=== PATIENT | male | born 1965 | race Caucasian/White ===

== ENCOUNTER 2017-04-04 20:52 | Inpatient (IN) | payer OTHER ==
[~2017-04-04] VITALS: Ht 175.3 cm; Wt 100.3 kg
[2017-04-04 21:22] LABS: BASOPHILS # (AUTO) 0.08 x10^3/uL (0-0.1); BASOPHILS % (AUTO) 1 % (0-1); EOSINOPHILS # (AUTO) 0.22 x10^3/uL (0-0.4); EOSINOPHILS % (AUTO) 3 % (1-7); LYMPHOCYTES % (AUTO) 18 % (22-44); MD NO; MEAN CORPUSCULAR VOLUME 91.2 fL (81-97); MEAN PLATELET VOLUME 7.8 fL (7.4-10.4); MONOCYTES # (AUTO) 0.83 x10^3/uL (0.2-0.8); MONOCYTES % (AUTO) 9 % (2-9); NEUTROPHILS # (AUTO) 6.16 x10^3/uL (1.8-6.8); NEUTROPHILS % (AUTO) 69 % (42-75); PLATELET COUNT 251 x10^3/uL (130-400); RED BLOOD COUNT 4.39 x10^6/uL (4.38-5.82); RED CELL DISTRIBUTION WIDTH 12.9 % (9.4-14.8)
[2017-04-04] MEDS ORDERED: NITROGLYCERIN SINGLE TAB 0.4 MG SL ONE (21:29)
[2017-04-04] MEDS: NITROGLYCERIN SINGLE TAB 0.4 MG SL PRN ×2 (21:30→21:40)
[2017-04-04] MEDS ORDERED: SODIUM CHLORIDE FLUSH 10ML SYR IVF ONE (21:30)
[2017-04-04 21:38] LABS: ALANINE AMINOTRANSFERASE 33 U/L (12-78); ALBUMIN 3.9 g/dL (3.4-5.0); ANION GAP 8 mmol/L (5-15); CALCIUM 8.5 mg/dL (8.5-10.1); CHLORIDE 106 mmol/L (98-107); CREATININE 1.53 mg/dL (0.7-1.3); TROPONIN I < 0.015 ng/mL (0.000-0.045)
[2017-04-04 21:39] LABS: ALKALINE PHOSPHATASE 57 U/L (45-117); BILIRUBIN,TOTAL 0.5 mg/dL (0.2-1.0); TOTAL PROTEIN 7.5 g/dL (6.4-8.2)
[2017-04-04] MEDS ORDERED: ONDANSETRON 2MG/ML, 2ML ONE (21:46)
[2017-04-04] MEDS ORDERED: MORPHINE SULFATE 4 MG/ML, 1ML ONE (21:46)
[2017-04-04 21:47] LABS: INTERNATIONAL NORMALIZED RATIO 1.21 (0.93-1.1); PROTHROMBIN TIME 12.4 Seconds (9.6-11.5)
[2017-04-04] MEDS ORDERED: ONDANSETRON 2MG/ML, 2ML IVPush ONE (22:00)
[2017-04-04] MEDS ORDERED: MORPHINE SULFATE 4 MG/ML, 1ML IVPush PRN (22:00)
[2017-04-04] MEDS ORDERED: LISI-170 PO (22:26)
[2017-04-04] MEDS ORDERED: SPIR25TA3 PO (22:26)
[2017-04-04] MEDS ORDERED: RIVA20TA PO (22:26)
[2017-04-04] MEDS ORDERED: FURO20TA3 PO (22:26)
[2017-04-04] MEDS ORDERED: CLOP75TA PO (22:26)
[2017-04-04] MEDS ORDERED: CARV6.2512 PO (22:26)
[2017-04-04] MEDS ORDERED: ROSU20TA PO (22:26)
[2017-04-04] MEDS ORDERED: SODIUM CHLORIDE 0.9% 1,000ML IVBOLUS ONE (23:30)
[2017-04-05] MEDS ORDERED: ZOLPIDEM 5MG TABLET PO PRN
[2017-04-05] MEDS ORDERED: morphine SULFATE 10 MG/ML, 1ML IVPush PRN
[2017-04-05] MEDS ORDERED: ONDANSETRON 2MG/ML, 2ML IVPush PRN
[2017-04-05] MEDS ORDERED: hydrALAzine 20 MG/ML, 1ML IVPush PRN
[2017-04-05 00:03] LABS: TROPONIN I < 0.015 ng/mL (0.000-0.045)
[2017-04-05 00:30] VITALS: BP 127/87
[2017-04-05] MEDS: SODIUM CHLORIDE 0.9% 1,000 ML IV SCH ×2 (00:46→07:47)
[2017-04-05 02:03] LABS: MICROSCOPIC NOT IND
[2017-04-05 02:17] LABS: CULTURE INDICATED? NO
[2017-04-05 02:45] LABS: AMPHETAMINE SCREEN, URINE Positive (Negative); BARBITURATE SCREEN, URINE Negative (Negative); BENZODIAZEPINE SCREEN, URINE Negative (Negative); CANNABINOID SCREEN, URINE Negative (Negative); COCAINE SCREEN, URINE Negative (Negative); METHADONE SCREEN, URINE Negative (Negative); OPIATE SCREEN, URINE Positive (Negative)
[2017-04-05 04:00] VITALS: BP 129/78
[2017-04-05 05:55] LABS: TROPONIN I < 0.015 ng/mL (0.000-0.045)
[2017-04-05 05:58] LABS: ANION GAP 7 mmol/L (5-15); CALCIUM 7.5 mg/dL (8.5-10.1); CHLORIDE 108 mmol/L (98-107); CHOLESTEROL, TOTAL 92 mg/dL (140-239); CREATININE 1.12 mg/dL (0.7-1.3)
[2017-04-05 06:01] LABS: CHOL/HDL RATIO 2.6; HDL CHOL % 39 % (26-37); HDL CHOLESTEROL (DIRECT) 36 mg/dL (40-60); LDL CHOLESTEROL,CALCULATED 30 mg/dL (54-169); LDL/HDL RATIO 0.8 (0.5-3.0); TRIGLYCERIDES 132 mg/dL (50-200); VLDL CHOLESTEROL 26 mg/dL (0-25)
[2017-04-05 07:43] VITALS: BP 103/68
[2017-04-05] MEDS ORDERED: CLOPIDOGREL 75 MG TABLET PO SCH (09:00)
[2017-04-05] MEDS ORDERED: RIVAROXABAN 20 MG TABLET PO SCH (09:00)
[2017-04-05] MEDS ORDERED: SPIRONOLACTONE 25 MG TABLET PO SCH (09:00)
[2017-04-05] MEDS ORDERED: CARVEDILOL 6.25 MG TABLET PO SCH (09:00)
[2017-04-05] MEDS ORDERED: LISINOPRIL 20 MG TABLET PO SCH (09:00)
[2017-04-05] MEDS ORDERED: FUROSEMIDE 20 MG TABLET PO SCH (09:00)
[2017-04-05] MEDS ORDERED: REGADENOSON 0.4 MG/5 ML SYRINGE ONE (09:13)
[2017-04-05 10:04] VITALS: BP 104/70
[2017-04-05 11:25] VITALS: BP 109/75
[2017-04-05 12:26] VITALS: BP 108/69
[2017-04-05] MEDS ORDERED: MAALOX/HYOSCYAMINE/LIDOCAINE 45 ML BTL PO ONE (17:00)
[2017-04-05] MEDS ORDERED: NITR0.6T4 SL (17:11)
[2017-04-05] MEDS ORDERED: NITR0.3T5 SL (17:11)
[2017-04-05] MEDS ORDERED: NITR0.4T SL (17:11)
[2017-04-05] MEDS ORDERED: ATORVASTATIN 40 MG TABLET PO SCH (21:00)
== END 2017-04-05 18:02 | disposition home or self-care (01) | DRG 439 ==
LOC: SUATTDRO 23:31 → ED 23:31 → EDIP 23:44 → 5SO 04-05 00:47
PROVIDERS: ADMIT Hospitalist; ATTEND Hospitalist
DX: K85.90 Acute pancreatitis without necrosis or infection, unspecified (principal); N17.9 Acute kidney failure, unspecified; R07.89 Other chest pain; E78.5 Hyperlipidemia, unspecified; E78.00 Pure hypercholesterolemia, unspecified; E86.9 Volume depletion, unspecified; F17.200 Nicotine dependence, unspecified, uncomplicated; I10 Essential (primary) hypertension; I25.10 Atherosclerotic heart disease of native coronary artery without angina pectoris; I25.2 Old myocardial infarction; K76.9 Liver disease, unspecified; Z79.82 Long term (current) use of aspirin; Z95.5 Presence of coronary angioplasty implant and graft
CPT/HCPCS: 36415; 71045; 76700; 78452; 80048; 80053; 80061; 80307; 81003; 83690; 83735; 84100; 84484; 85025; 85610; 85730; 86850; 86900; 93005; 93017; 96361; 96374; 96375; J2405; J2785; A9502; C9898; J2270; J7030

== ENCOUNTER 2017-09-15 13:56 | Emergency (ER) | payer MEDICAID, OTHER ==
[~2017-09-15] VITALS: Ht 175.3 cm; Wt 102.0 kg
[~2017-09-15 13:56] MED LIST: CARV6.2512 PO; CLOP75TA PO; FURO20TA3 PO; LISI-170 PO; NITR0.3T5 SL; NITR0.4T SL; NITR0.6T4 SL; RIVA20TA PO; ROSU20TA PO; SPIR25TA3 PO
[2017-09-15] MEDS ORDERED: MORPHINE SULFATE 4 MG/ML, 1ML ONE (14:17)
[2017-09-15] MEDS ORDERED: MAALOX/HYOSCYAMINE/LIDOCAINE 45 ML BTL ONE (14:17)
[2017-09-15] MEDS ORDERED: SODIUM CHLORIDE FLUSH 10ML SYR IVF ONE (14:30)
[2017-09-15] MEDS ORDERED: MORPHINE SULFATE 4 MG/ML, 1ML IVPush PRN (14:30)
[2017-09-15] MEDS ORDERED: MAALOX/HYOSCYAMINE/LIDOCAINE 45 ML BTL PO ONE (14:30)
[2017-09-15 14:34] LABS: BASOPHILS # (AUTO) 0.02 x10^3/uL (0-0.1); BASOPHILS % (AUTO) 0 % (0-1); EOSINOPHILS # (AUTO) 0.13 x10^3/uL (0-0.4); EOSINOPHILS % (AUTO) 2 % (1-7); LYMPHOCYTES # (AUTO) 1.25 x10^3/uL (1-3.4); LYMPHOCYTES % (AUTO) 15 % (22-44); MD NO; MEAN CORPUSCULAR HEMOGLOBIN 30.5 pg (27.5-34.5); MEAN CORPUSCULAR HGB CONC 33.9 g/dL (33.2-36.2); MEAN CORPUSCULAR VOLUME 90.1 fL (81-97); MEAN PLATELET VOLUME 7.7 fL (7.4-10.4); MONOCYTES # (AUTO) 0.58 x10^3/uL (0.2-0.8); MONOCYTES % (AUTO) 7 % (2-9); NEUTROPHILS # (AUTO) 6.21 x10^3/uL (1.8-6.8); NEUTROPHILS % (AUTO) 76 % (42-75); PLATELET COUNT 246 x10^3/uL (130-400); RED BLOOD COUNT 4.73 x10^6/uL (4.38-5.82); RED CELL DISTRIBUTION WIDTH 14.2 % (9.4-14.8)
[2017-09-15 14:44] LABS: ALANINE AMINOTRANSFERASE 39 U/L (12-78); ALBUMIN 3.8 g/dL (3.4-5.0); ANION GAP 7 mmol/L (5-15); CALCIUM 9.2 mg/dL (8.5-10.1); CHLORIDE 100 mmol/L (98-107); CREATININE 1.42 mg/dL (0.7-1.3)
[2017-09-15 14:46] LABS: ALKALINE PHOSPHATASE 58 U/L (45-117); BILIRUBIN,TOTAL 0.6 mg/dL (0.2-1.0); TOTAL PROTEIN 7.9 g/dL (6.4-8.2)
[2017-09-15 15:03] LABS: INTERNATIONAL NORMALIZED RATIO 0.99 (0.93-1.1); PROTHROMBIN TIME 10.3 Seconds (9.6-11.5)
[2017-09-15] MEDS ORDERED: OMNIPAQUE 350 MG/ML, 100ML BOTTLE ONE (16:19)
[2017-09-15 16:37] VITALS: BP 163/102
== END 2017-09-15 17:49 | disposition home or self-care (01) ==
LOC: ED 17:43
DX: R10.11 Right upper quadrant pain (principal); K80.20 Calculus of gallbladder without cholecystitis without obstruction; R11.2 Nausea with vomiting, unspecified; E78.00 Pure hypercholesterolemia, unspecified; I10 Essential (primary) hypertension; F17.200 Nicotine dependence, unspecified, uncomplicated; E78.5 Hyperlipidemia, unspecified
CPT/HCPCS: 36415; 74021; 74177; 80053; 83690; 85025; 85610; 93005; 96374; 99285; Q9967